=== PATIENT | male | born 1970 | race Caucasian/White ===

== ENCOUNTER 2018-09-19 10:26 | Emergency (ER) | payer OTHER ==
[2018-09-19] MEDS ORDERED: fentaNYL CITR 100 MCG/2 ML AMP IVP ONE (10:35)
[2018-09-19] MEDS ORDERED: ONDANSETRON 4 MG/2 ML VIAL IVP ONE (10:35)
[2018-09-19] MEDS ORDERED: DIPHTH/TETANUS/ACEL. PERTUSSIS IM ONLY ONE (10:35)
[2018-09-19] MEDS ORDERED: LORazepam 2 MG/ML VIAL IVP ONE (10:35)
[2018-09-19] MEDS ORDERED: KETOROLAC 15 MG/ML VIAL IVP ONE (10:40)
[2018-09-19] MEDS ORDERED: PROPOFOL EMUL(*) 10MG/ML 20 ML 20 ML ONE (10:47)
[2018-09-19] MEDS ORDERED: KETAMINE HCL 500 MG/5 ML VIAL ONE (10:48)
--- NOTE | 2018-09-19 11:25 | RADIOLOGY IMAGING REPORT ---
FACILITY: [facility] PATIENT NAME: Tyler Mcdonough : 1970 MR: [id number] V: [id number] EXAM DATE: ORDERING PHYSICIAN: SALAS LYNCH TECHNOLOGIST: Location: [facility] - [place] Patient: Tyler Mcdonough : 1970 Visit/Account:[id number] Date of Sevice: 09/19/2018 FOREARM LEFT Indication: trauma Comparison: None. Findings: There is a comminuted fracture of both radius and ulna on the left forearm. There is no rad iopaque foreign body. IMPRESSION: Transverse comminuted fracture of the left radius and left ulna. Report Dictated By: Louie Koch at 09/19/2018 11:18 AM Report E-Signed By: Louie Koch at 09/19/2018 11:19 AM WSN:[id number]
--- NOTE | 2018-09-19 11:26 | RADIOLOGY IMAGING REPORT ---
FACILITY: [facility] - [place] PATIENT NAME: Tyler Mcdonough : 1970 MR: [id number] V: [id number] EXAM DATE: ORDERING PHYSICIAN: SALAS LYNCH TECHNOLOGIST: Location: [facility] Patient: Tyler Mcdonough : 1970 Visit/Account:[id number] Date of Sevice: 09/19/2018 CHEST SINGLE AP Indication: trauma Comparison: None. Findings: Lungs: Clear. Mediastinum/pulmonary vasculature: Heart size and pulmonary vasculature are normal. Bones/soft tissues: Normal. IMPRESSION: Clear lungs. Report Dictated By: Louie Koch at 09/19/2018 11:15 AM Report E-Signed By: Louie Koch at 09/19/2018 11:18 AM WSN:[id number]
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
--- NOTE | 2018-09-19 12:47 | RADIOLOGY IMAGING REPORT ---
[place] [facility] [place] Tyler Mcdonough : 1970 MR: [id number] V: [id number] EXAM DATE: ORDERING PHYSICIAN: PENG ROBISON TECHNOLOGIST: [place] [facility] [place] Patient: Tyler Mcdonough : 1970 Visit/Account:[id number] Date of Sevice: 09/19/2018 EXAMINATION: Left forearm, 2 views 09/19/2018 12:00 PM HISTORY: post reduction COMPARISON: Prereduction imaging today FINDINGS: Displacement and foreshortening in the diaphyseal fractures of the left radius and ulna is improved significantly status post reduction and casting. There is still partial displacement simula tion along the fracture but no substantial residual foreshortening. No new bony finding otherwise. Ex ternal cast now in place. IMPRESSION: Improved alignment of left radial and ulnar diaphyseal fractures status post reduction and casting. Report Dictated By: Louie Sands MD at 09/19/2018 12:38 PM Report E-Signed By: Louie Sands MD at 09/19/2018 12:39 PM WSN:[id number]
[2018-09-19] MEDS ORDERED: OXYC-865 PO (13:01)
[2018-09-19] MEDS ORDERED: ONDA4TAB97 PO (13:01)
[2018-09-19 13:15] VITALS: BP 149/98
== END 2018-09-19 14:10 | disposition home or self-care (01) ==
LOC: ER 10:36
DX: S52.202A Unspecified fracture of shaft of left ulna, initial encounter for closed fracture (principal); S52.302A Unspecified fracture of shaft of left radius, initial encounter for closed fracture
CPT/HCPCS: 25565; 71045; 73090; 90715; 96374; 96375; 99285; A4565; J1885; J2060; J2405; J2704; J3010; 90471